=== PATIENT | male | born 1965 | race Caucasian/White ===

== ENCOUNTER 2024-09-06 13:59 | Emergency (ER) | payer SELFPAY ==
[2024-09-06] VITALS (19 sets, daily range): BP systolic 170–174; BP diastolic 79–93; PULSE 75–89; TEMP 36.9; O2SAT 91–100; BMI 25.6
--- OUTSIDE RECORDS SUMMARY | 2024-09-06 14:30 | XMS_ITS | Clinical Summary ---
Author Organization [facility] Address [facility] [id number] [address] [place] [address] Care Team Providers Care Crusher Operator Name Role Phone Baljit Disla MD Primary Care Provider [phone] Allergies No known active allergies Medications No known medications Social History Tobacco Use Types Packs/Day Years Used Date Smoking Tobacco: Never Smokeless Tobacco: Never Childcare Answer Date Recorded Childcare Unknown 10/28/2018 Employment Answer Date Recorded Employment Unknown 10/28/2018 Purpose - Life Answer Date Recorded Purpose and direction in life Unknown Sex and Gender Information Value Date Recorded Sex Assigned at Not on file Legal Sex Male 7:35 PM EDT Gender Identity Not on file Sexual Orientation Not on file Last Filed Vital Signs Vital Sign Reading Time Taken Comments Blood Pressure 168/99 10/28/2018 7:46 PM EDT Pulse 94 10/28/2018 7:53 PM EDT Temperature 36.6 C (97.9 F) 10/28/2018 7:46 PM EDT Respiratory Rate 22 10/28/2018 7:46 PM EDT Oxygen Saturation 95% 10/28/2018 7:53 PM EDT Inhaled Oxygen Concentration - - Weight 83.9 kg (185 lb) 10/28/2018 7:46 PM EDT Height 193 cm (6' 4 ) 10/28/2018 7:46 PM EDT Body Mass Index 22.52 10/28/2018 7:46 PM EDT Plan of Treatment Not on file Medical Devices Not on file Insurance [employer] Care Teams Crusher Operator Relationship Specialty Start Date End Date Baljit Disla MD PCP - General Family Medicine 10/28/18
--- NOTE | 2024-09-06 14:31 | CT_ITS ---
The [address] [address] Patient Name: VLADISLAV LANIER MRN: [id number] date: 1965 Sex: M Assigned Patient Location: ER Current Patient Location: ER Accession/Order Number: [id number] Exam Date: 09/06/2024 15:24 Report Date: 09/06/2024 15:30 At the request of: KASHMIR MENDIOLA NP Procedure: CT abdomen pelvis w con CT Abdomen and Pelvis withcontrast TECHNIQUE: Axial imaging with 2-D reconstruction. . The CT exam was performed using one or more the following dose reduction techniques: Automated exposure control, adjustment of the MA and/or Kv according to patient size, or use of the iterative reconstruction technique. COMPARISON: None History: Right lower quadrant pain LIMITATIONS: None LOWER THORAX Unremarkable LIVER: Unremarkable GALLBLADDER: No gallbladder abnormality identified. BILE DUCTS: No dilatation SPLEEN: Unremarkable PANCREAS: Unremarkable ADRENAL GLANDS: Unremarkable KIDNEYS:Unremarkable AORTA: No abdominal aortic aneurysm identified. RETROPERITONEUM: No significant retroperitoneal abnormalities identified. MESENTERY:Unremarkable STOMACH:Unremarkable SMALL BOWEL: The small bowel loops are nondistended. APPENDIX: The appendix diameter 12 mm. Wall thickening and enhancement of the appendix. Adjacent fatty stranding. No abscess. No extraluminal air. COLON: Scattered diverticulosis URINARY BLADDER: Urinary bladder is unremarkable. REPRODUCTIVE SYSTEM: Reproductive structures are unremarkable. PNEUMOPERITONEUM: None PERITONEAL FLUID:Trace pelvic ascites BONY STRUCTURES: Unremarkable ABDOMINAL WALL: Fat-containing umbilical hernia CT/CT abdomen pelvis w con IMPRESSION: Uncomplicated acute appendicitis. Preliminary 3:28 PM 09/06/2024 Impression dictated by: Tk Rogers M.D. 09/06/2024 3:30 PM Dictation Location: [facility] Electronically authenticated by: [id number] Y Date: 09/06/2024 15:30
--- NOTE | 2024-09-06 14:31 | ECG_ITS ---
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
[2024-09-06] MEDS: MORPHINE SULFATE 2 MG/ML SYRINGE IV ×2 (14:53→15:55)
[2024-09-06] MEDS: 0.9 % SODIUM CHLORIDE 1,000 ML 1000 ML IV (14:54)
[2024-09-06 14:56] LABS: Hematocrit 45.0 % (42.0-54.0); Hemoglobin 15.1 g/dL (14.0-18.0); Mean Corpuscular HGB Conc 33.6 g/dL (29.9-35.2); Mean Corpuscular Hemoglobin 29.0 pg (25.9-34.0); Mean Corpuscular Volume 86.5 fL (80.0-94.0); Platelet Count 265 10^3/uL (150-450); Red Blood Count 5.20 10^6/uL (4.70-6.10); White Blood Count 13.8 10^3/uL (4.0-11.0)
--- NOTE | 2024-09-06 15:01 | ED_ITS ---
HPI HPI - General Adult General Chief complaint: Abdominal Pain Stated complaint: RT SHOULDER PAIN, ABDOMINAL PAIN Time Seen by Provider: 09/06/24 14:03 Source: patient Mode of arrival: walk-in Limitations: no limitations History of Present Illness HPI narrative: The patient is a 59-year-old male who presents to the emergency department today for evaluation concerns for abdominal pain. He states he woke up early this morning with pain to the right lower quadrant and states he does have some mild shoulder discomfort with this. He denies any symptoms of nausea/vomiting. No diarrhea. No fever/chills, chest pain, shortness of breath. He endorses the pain is worse with movement including deep inspiration. He denies any significant medical or surgical history otherwise. Related Data Allergies Allergy/AdvReac Type Severity Reaction Status Date / Time No Known Drug Allergies Allergy Verified 09/06/24 14:23 Review of Systems ROS Status of ROS 10 or more systems reviewed and unremark able except as noted in history and below PFSH PFSH Social History Little interest or pleasure in doing things: not at all Feeling down, depressed, or hopeless: not at all Exam Narrative Exam Narrative: Constituational: Awake/ alert, appears to be in pain, well hydrated HENMT: normocephalic, external ears normal, moist oral mucous membranes and oropharynx normal Eyes: EOMI and conjunctivae normal Neck: ROM intact Chest: inspection of chest normal Respiratory: Normal respiratory effort, clear to auscultation bilaterally Cardio: regular rate and regular rhythm GI: +moderate pain RLQ with rebound and guarding, abdomen is otherwise soft to palpation Back: nontender MSK: ROM intact, +NVI Skin: no rashes or petechiae Neuro: no focal deficits Psych: mental status grossly normal Constitutional Vital Signs, click to edit/add: Last Vital Signs Temp 98.5 F 09/06/24 14:23 Pulse 75 09/06/24 15:20 Resp 26 H 09/06/24 15:20 BP 174/93 H 09/06/24 14:23 Pulse Ox 92 L 09/06/24 15:00 O2 Del Method Room Air 09/06/24 14:23 Course Vital Signs Vital signs: Vital Signs Temperature 98.5 F 09/06/24 14:23 Pulse Rate 88 09/06/24 14:23 Respiratory Rate 24 H 09/06/24 14:23 Blood Pressure 174/93 H 09/06/24 14:23 Pulse Oximetry 95 09/06/24 14:23 Oxygen Delivery Method Room Air 09/06/24 14:23 Temperature 98.5 F 09/06/24 14:23 Pulse Rate 75 09/06/24 15:20 Respiratory Rate 26 H 09/06/24 15:20 Blood Pressure 174/93 H 09/06/24 14:23 Pulse Oximetry 92 L 09/06/24 15:00 Oxygen Delivery Method Room Air 09/06/24 14:23 Medical Decision Making MDM Narrative Medical decision making narrative: Patient is a mildly ill-appearing 59-year-old male who presented to the emergency department today for evaluation concerns for acute onset right lower quadrant pain. Initial examination patient with acute abdominal findings on exam as evidenced by rebound and guarding. He did receive IV morphine x 2 doses with IV fluids due to pain on serial reevaluations. Labs significant for mild leukocytosis with WBCs 13 otherwise no significant anemia or thrombocytopenia. Electrolytes including renal and hepatic function stable. EKG without acute changes and troponin negative x 1. CT imaging of abdomen pelvis does show acute appendicitis. Patient received additional supportive measures of IVPB Zosyn. Did discuss patient's condition with general surgery Dr. Jacobs [id number] -> accepts patient for admission for transfer for surgery. Discussed the above findings with the patient. He additionally is agreeable to plan to transfer for [facility] for further care of the above. Medical Records Medical records reviewed: Yes I reviewed the patient's medical records Lab Data Lab results reviewed: Yes I reviewed the patient's lab results Labs: Lab Results 09/06/24 Range/Units 14:44 WBC 13.8 H (4.0-11.0) 10^3/uL RBC 5.20 (4.70-6.10) 10^6/uL Hgb 15.1 (14.0-18.0) g/dL Hct 45.0 (42.0-54.0) % MCV 86.5 (80.0-94.0) fL MCH 29.0 (25.9-34.0) pg MCHC 33.6 (29.9-35.2) g/dL RDW 13.3 (11.0-15.0) % Plt Count 265 (150-450) 10^3/uL MPV 10.5 (9.5-13.5) fL Seg Neuts % (Manual) 78.0 H (43.0-75.0) Band Neutrophils % 13.0 H (0-5) % Lymphocytes % (Manual) 4.0 L (20.5-60.0) % Monocytes % (Manual) 5.0 (1.7-12.0) % Eosinophils % (Manual) 0.0 L (0.9-7.0) % Basophils % (Manual) 0.0 L (0.2-2.0) % Neutrophils # (Manual) 10.76 H (1.4-6.5) 10^3/uL Band Neutrophils # 1.8 H (0.0-0.3) 10^3/uL Lymphocytes # (Manual) 0.55 L (1.20-3.80) 10^3/uL Monocytes # (Manual) 0.69 (0.30-0.80) 10^3/uL Eosinophils # (Manual) 0.00 (0.00-0.70) 10^3/uL Basophils # (Manual) 0.00 (0.00-0.10) 10^3/uL Sodium 139 (136-145) mmol/L Potassium 3.6 (3.5-5.1) mmol/L Chloride 100 (98-107) mmol/L Carbon Dioxide 30.8 (21.0-32.0) mmol/L Anion Gap 11.8 BUN 13.0 (7.0-18.0) mg/dL Creatinine 1.01 (0.70-1.30) mg/dL Est GFR ( Amer) >60 (>=60 mL/min/1.73m^2) Est GFR (Non-Af Amer) >60 (>=60 mL/min/1.73m^2) BUN/Creatinine Ratio 12.9 Glucose 132 H (74-106) mg/dL Calcium 8.4 L (8.5-10.1) mg/dL Total Bilirubin 0.7 (0.2-1.0) mg/dL AST 14 L (15-37) U/L ALT 22 (16-63) U/L Alkaline Phosphatase 118 H (46-116) U/L Troponin I High Sens 9.8 (4.0-76.1) pg/mL Total Protein 7.5 (6.4-8.2) g/dL Albumin 3.6 (3.4-5.0) g/dL Globulin 3.9 g/dL Albumin/Globulin Ratio 0.[address] scan - abdomen: Attestation: I have reviewed the pertinent imaging results. Radiologist's impression: ITS Impressions Abdomen/Pelvis CT 09/06/24 14:31 IMPRESSION: Uncomplicated acute appendicitis. Preliminary 3:28 PM 09/06/2024 Impression dictated by: Tk Rogers M.D. 09/06/2024 3:30 PM Dictation Location: [facility] Electronically authenticated by: [id number] Y Date: 09/06/2024 15:30 ECG Data Attestation: I personally reviewed and interpreted this ECG as follows: (SR with HR 78, no acute/ ischemic changes) Discharge Plan Discharge Chief Complaint: Abdominal Pain Clinical Impression: Acute appendicitis Patient Disposition: [facility]
[2024-09-06 15:10] LABS: Alanine Aminotransferase 22 U/L (16-63); Albumin Globulin Ratio 0.9; Albumin Level 3.6 g/dL (3.4-5.0); Alkaline Phosphatase 118 U/L (46-116); Anion Gap 11.8; Aspartate Amino Transferase 14 U/L (15-37); Blood Urea Nitrogen 13.0 mg/dL (7.0-18.0); Calcium 8.4 mg/dL (8.5-10.1); Carbon Dioxide 30.8 mmol/L (21.0-32.0); Chloride 100 mmol/L (98-107); Estimated GFR (African America >60 (>=60 mL/min/1.73m^2); Estimated GFR (Non-African Ame >60 (>=60 mL/min/1.73m^2); Globulin 3.9 g/dL; Glucose 132 mg/dL (74-106); Potassium 3.6 mmol/L (3.5-5.1); Sodium 139 mmol/L (136-145); Total Protein 7.5 g/dL (6.4-8.2)
[2024-09-06 15:17] LABS: Band Neutrophils Absolute 1.8 10^3/uL (0.0-0.3); Basophils Abs Manual 0.00 10^3/uL (0.00-0.10); Basophils Percent Manual 0.0 % (0.2-2.0); Eosinophils Absolute Manual 0.00 10^3/uL (0.00-0.70); Eosinophils Percent Manual 0.0 % (0.9-7.0); Lymphocytes Absolute Manual 0.55 10^3/uL (1.20-3.80); Lymphocytes Percent Manual 4.0 % (20.5-60.0); Monocytes Absolute Manual 0.69 10^3/uL (0.30-0.80); Monocytes Percent Manual 5.0 % (1.7-12.0); Segmented Neut Absolute Manual 10.76 10^3/uL (1.4-6.5); Segmented Neutrophils % Manual 78.0 (43.0-75.0)
[2024-09-06] MEDS: PIPERACILLIN SODIUM/TAZOBACTAM 3.375 GM in 0.9 % SODIUM CHLORIDE 50 ML IV (15:54)
--- NOTE | 2024-09-06 16:01 | PC.NURSE ---
placed on 2L NC for low SpO2 reading of 88% with no visible distress, after narcotic administration. now 94% on 2L NC
--- NOTE | 2024-09-06 17:21 | PC.NURSE ---
PHONE REPORT GIVEN TO SABI CRUZ AT [facility] [place]. PT HAS ALL OF HIS BELONGINGS WITH HIM. IV SALINE LOCKED. DENIES QUESTIONS
== END 2024-09-06 17:12 | disposition short-term general hospital (02) ==
PROVIDERS: Nurse Practitioner; Emergency Provider Emergency Medicine
DX: K35.80 Unspecified acute appendicitis (principal)
CPT/HCPCS: 36415; 74177; 80053; 84484; 85007; 85027; 93005; 96365; 96375; 96376; 99285; J2270; J2405; J2543; Q9967